=== PATIENT | male | born 1935 | race Caucasian/White ===

== ENCOUNTER 2018-12-14 12:06 | Inpatient (IN) | payer MEDICARE ==
[~2018-12-14] VITALS: Ht 157.5 cm; Wt 53.7 kg
[~2018-12-14 12:06] MED LIST: ALBU90OI INH; AMLO5 PO; ASPI81CH PO; ATOR10 PO; Accuneb1.25 MG/3 INH; Albuterol2.5 MG/0.5 INH; BENZ100A PO; CARV6.25 PO; CILO100 PO; CYCL10 PO; EUTHYROX88 MCG PO; FERSU220EL PO; FISH OIL 1,0001 EAC1 PO; FURO20 PO; Hydrocodone-Ap1 EA23 PO; LOSA50 PO; PANT40 PO; POTCIT10 PO; STRIVERDI RESPIM4 GM IH; TAMS.4ER PO; THERA-D2000 UNIT PO; TRAM50 PO
[2018-12-14 12:28] LABS: PCO2 Arterial 46.1 mmHg (35-45); PO2 Arterial 115 mmHg (80-100); pH Blood Arterial 7.37 (7.35-7.45)
[2018-12-14 12:38] LABS: BASOPHILS ABSOLUTE AUTO 0.03 K/mm3 (0.00-0.23); BASOPHILS PERCENT AUTO 0 % (0-2); EOSINOPHILS ABSOLUTE AUTO 0.01 K/mm3 (0.00-0.68); EOSINOPHILS PERCENT AUTO 0 % (0-6); Hematocrit 31.4 % (37.0-53.0); Hemoglobin 10.4 g/dL (13.5-17.5); IMMATURE GRAN ABSOLUTE AUTO 0.54 K/mm3 (0.00-0.10); IMMATURE GRAN PERCENT AUTO 3 % (0-1); LYMPHOCYTES ABSOLUTE AUTO 0.36 K/mm3 (0.84-5.20); LYMPHOCYTES PERCENT AUTO 2 % (21-46); MONOCYTES ABSOLUTE AUTO 1.26 K/mm3 (0.16-1.47); MONOCYTES PERCENT AUTO 6 % (4-13); Mean Corpuscular HGB 30.1 pg (26.0-34.0); Mean Corpuscular HGB Conc 33.1 g/dL (31.5-36.5); Mean Corpuscular Volume 91 fL (80-100); Mean Platelet Volume 11.2 fL (9.1-12.4); NEUTROPHILS ABSOLUTE AUTO 18.75 K/mm3 (1.96-9.15); NEUTROPHILS PERCENT AUTO 90 % (41-73); Platelet Count 222 K/mm3 (150-400); RDW Coefficient Variation 14.6 % (11.7-14.2); RDW Standard Deviation 48.1 fL (35.1-46.3); Red Blood Cell Count 3.45 M/mm3 (4.30-5.90); White Blood Cell Count 20.95 K/mm3 (4.00-11.30)
[2018-12-14 12:57] LABS: Alanine Aminotransfer (ALT/SGP 53 U/L (12-78); Albumin, Blood 3.5 g/dL (3.4-5.0); Albumin/Globulin Ratio 0.9 (0.8-1.8); Alk Phos 49 U/L (50-136); Anion Gap 6 mmol/L (6-16); Aspartate Aminotrans (AST/SGOT 25 U/L (12-37); Bilirubin, Total 1.2 mg/dL (0.1-1.0); Blood Urea Nitrogen 18 mg/dL (8-24); Bun/Creatinine Ratio 23.6 (12.0-20.0); CO2, Blood 28 mmol/L (21-32); Calcium, Blood 8.6 mg/dL (8.5-10.1); Chloride, Blood 90 mmol/L (98-108); Creatinine, Blood 0.76 mg/dL (0.60-1.20); Globulin, Blood 3.7 g/dL (2.2-4.0); Glomerular Filtration Rate >60 (60-); Glucose, Blood 95 mg/dL (70-99); Potassium, Blood 4.7 mmol/L (3.5-5.5); Sodium, Blood 124 mmol/L (136-145); Total Protein, Blood 7.2 g/dL (6.4-8.2); Troponin I 0.052 ng/mL (0.000-0.040)
[2018-12-14] MEDS ORDERED: ACET325 PO (13:22)
[2018-12-14] MEDS ORDERED: Aspirin EC81 MG PO (13:25)
[2018-12-14] MEDS ORDERED: AMLO5 PO (13:25)
[2018-12-14] MEDS ORDERED: Bisoprolol Fuma10 MG PO (13:26)
[2018-12-14] MEDS ORDERED: CODE30 PO (13:28)
[2018-12-14] MEDS ORDERED: FERSU300 PO (13:31)
[2018-12-14] MEDS ORDERED: Chest Congesti400 MG PO (13:33)
[2018-12-14] MEDS ORDERED: STIOLTO RESPIMAT4 GM INH (13:35)
[2018-12-14] MEDS ORDERED: GAVILAX17 GM PO (13:36)
[2018-12-14] MEDS ORDERED: PANT40 PO (13:36)
[2018-12-14] MEDS ORDERED: (None)20 M1 PO (13:39)
[2018-12-14] MEDS ORDERED: Zantac150 MG PO (13:44)
[2018-12-14] MEDS ORDERED: Senna8.6 MG PO (13:44)
--- NOTE | 2018-12-14 15:57 | NUR ---
Echocardiogram completed. Ankita Jj RDCS
--- NOTE | 2018-12-14 16:28 | NUR ---
Initial Visit: ED Palliative Care Consult for AD/POLST. Received call from mayra Bone reporting Pt and family expresses interest in completing POLST. Pt is A&Ox4 and denies pain at this time. Currently on BIPAP. Family present during visit. Engaged in therapeutic conversation regarding POLST/AD. Family reports Pt discussed with Dr Sethi regarding code status that Pt wants to be DNR. Pt is hard of hearing and education was being provided regarding POLST family felt Pt was experiencing some agitation. Offered to visit when Pt is admitted to the floor and when was not in distress. Family is agreeable. Gave family POLST and Advanced Directive to review and left contact information for palliative care. Plan: Palliative Care will F/U after Pt is admitted to the floor.
--- NOTE | 2018-12-14 18:00 | NUR ---
PT ARRIVED TO PCU 16 VIA GURNEY FROM ED. FAMILY IN ATTENDENCE, HE WAS PULLED TO BED, IS ON BIPAP AT THIS TIME, HE IS A/OX3, PLEASANT AND COOPERATIVE WITH CARE, FOLLOWS COMMANDS WELL, DENIES PAIN, JUST SOB, LUNGS ARE VERY DIM WITH EXP WHEEZING T/O, RESP EVEN WITH MILD LABORING, DAUGHTER REPORTS A HARSH PRODUCTIVE COUGH OF YELLOW SPUTUM, HE WAS RECENTLY HOSPITALIZED AT [facility], AND HAS BEEN HAVING SOB SINCE THEN, HRIRR, HAS A LOUD MURMUR, IS AFIB PER MONINTOR, SEE STRIP, +2 PITTING EDEMA NOTED TO B/L LE, CAP REFILL <4SEC, VS STABLE, LOW GRADE TEMP, IV TO RIGHT AND LEFT WRISTS, S.L, SITES ARE CLEAR AND PATENT, BTX4 ABD ROUND SEMI FIRM, VOIDS VIA URINAL LEYDA URINE, SKIN C/W/D, EXCEPT A VERY LARGE DEEP PURPLE BRUISE ACROSS ABD HE STATES FROM BLOOD THINNING INJECTIONS, MAEW, IS ABLE TO STAND AND TRANSFER WITH ONE PERSON ASSIST, BUT HAS ACTIVITY INTOLERANCE DUE TO RESP STATUS, MARIE. ORIENTED TO ROOM LAYOUT CALL LIGHT IN REACH.
[2018-12-15 03:44] LABS: BASOPHILS PERCENT AUTO 0 % (0-2); EOSINOPHILS PERCENT AUTO 0 % (0-6); Hematocrit 26.8 % (37.0-53.0); Hemoglobin 8.8 g/dL (13.5-17.5); IMMATURE GRAN ABSOLUTE AUTO 0.16 K/mm3 (0.00-0.10); IMMATURE GRAN PERCENT AUTO 2 % (0-1); LYMPHOCYTES ABSOLUTE AUTO 0.34 K/mm3 (0.84-5.20); LYMPHOCYTES PERCENT AUTO 5 % (21-46); MONOCYTES ABSOLUTE AUTO 0.54 K/mm3 (0.16-1.47); MONOCYTES PERCENT AUTO 7 % (4-13); Mean Corpuscular HGB 29.4 pg (26.0-34.0); Mean Corpuscular HGB Conc 32.8 g/dL (31.5-36.5); Mean Corpuscular Volume 90 fL (80-100); Mean Platelet Volume 11.4 fL (9.1-12.4); NEUTROPHILS ABSOLUTE AUTO 6.55 K/mm3 (1.96-9.15); NEUTROPHILS PERCENT AUTO 86 % (41-73); Platelet Count 165 K/mm3 (150-400); RDW Coefficient Variation 14.7 % (11.7-14.2); Red Blood Cell Count 2.99 M/mm3 (4.30-5.90); White Blood Cell Count 7.59 K/mm3 (4.00-11.30)
[2018-12-15 04:05] LABS: Anion Gap 6 mmol/L (6-16); Blood Urea Nitrogen 23 mg/dL (8-24); Bun/Creatinine Ratio 22.8 (12.0-20.0); CO2, Blood 29 mmol/L (21-32); Calcium, Blood 8.3 mg/dL (8.5-10.1); Chloride, Blood 91 mmol/L (98-108); Creatinine, Blood 1.01 mg/dL (0.60-1.20); Glomerular Filtration Rate >60 (60-); Glucose, Blood 152 mg/dL (70-99); Potassium, Blood 4.6 mmol/L (3.5-5.5); Sodium, Blood 126 mmol/L (136-145)
--- NOTE | 2018-12-15 05:58 | NUR ---
SHIFT SUMMARY PT SLEEPING IN ROOM COMFORTABLY AT THIS TIME. NO ACUTE CHANGES IN STATUS T/O NIGHT. PT WORE BIPAP AT START OF SHIFT FOR SEVERAL HOUR AND REQUESTED BREAK. PT TOLERATED NC AT 3L WELL, AND WAS ABLE TO SLEEP COMFORTABLY W/ O2 SATS >95% T/O NIGHT ON 3L O2. PT STOOD TO USE URINAL MULTIPLE TIMES T/O NIGHT AND NO SIGNIFICANT DESATURATIONS WERE NOTED, PT REMAINED ABOVE 90%. DENIES PAIN. REPORT MINOR DYSPNEA W/ EXERTION. DENIES OTHER NEEDS. PT VERY [place]. CALL LIGHT IN REACH. FAMILY AT BEDSIDE.
--- NOTE | 2018-12-15 09:51 | NUR ---
Pt visit this AM. Pt sitting in chair upon arrival and appears comfortable. Pt reports feeling better today. Currently off BIPAP and receiving O2 via NC. Pt's family present during visit. Family reports plan to complete AD today and will request a notary once complete. Pt and family report no concerns at this time. Spoke with bedside nurse Traci and discussed case. Palliative Care will remain available.
--- NOTE | 2018-12-15 16:38 | NUR ---
SHIFT SUMMARY PT A&Ox4. CALM AND COOPERATIVE WITH CARE CARE. 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 PT REPORTS LOWER BACK AND BLE PAIN THIS AM, MEDICATED x1 WITH TYLENOL WITH POSITIVE RESULTS. PT SOB WITH EXERTION, >92% ON 3L O2 VIA NC, PT HAS NOT NEEDED RESCUE BIPAP DURING SHIFT. LS DIM/COARSE T/O. BREATHING EVEN, LABORED AT TIMES. PT DENIES NAUSEA/VOMITING DURING SHIFT. PT ON FLUID RESTRICTIONS 1500, REQUESTING WATER AND COFFEE T/O SHIFT, EDUCATED ON RESTRICTION AND PURPOSE. PT RECEIVING IV ANTIBIOTICS AND LASIX. PT UP WITH SBA TO BATHROOM WITH SOB NOTED, NO SIGNIFICANT DESATURATIONS NOTED. TELE AFIB. VSS. NO OTHER ACUTE CHAGNES NOTED DURING SHIFT. WILL CONTINUE TO MONITOR UNTIL REPORT GIVEN TO ONCOMING RN.
--- NOTE | 2018-12-16 06:11 | NUR ---
SHIFT SUMMARY: PATIENT ALERT AND ORIENTED, NEEDING VERY LITTLE ASSISTANCE TO THE RESTROOM, SOB IS IMPROVING AND PATIENT IS DOWN TO 1L02 VIA NC/MAINTAINING A SATURATION OF 95%. VSS, CALL LIGHT WITHIN REACH, BED LOW AND LOCKED AND FAMILY AT BEDSIDE.
[2018-12-16 10:36] LABS: Anion Gap 3 mmol/L (6-16); Blood Urea Nitrogen 27 mg/dL (8-24); Bun/Creatinine Ratio 24.8 (12.0-20.0); CO2, Blood 32 mmol/L (21-32); Calcium, Blood 8.8 mg/dL (8.5-10.1); Chloride, Blood 92 mmol/L (98-108); Creatinine, Blood 1.09 mg/dL (0.60-1.20); Glomerular Filtration Rate >60 (60-); Glucose, Blood 84 mg/dL (70-99); Potassium, Blood 3.9 mmol/L (3.5-5.5); Sodium, Blood 127 mmol/L (136-145)
--- NOTE | 2018-12-16 17:01 | NUR ---
SHIFT SUMMARY PT A&Ox4. CALM AND COOPERATIVE WITH CARE. [place] WITH BILATERAL HEARING AIDS. PT SBA WITH WALKER. UP IN CHAIR FOR MEALS. PT STARTED ON 1L O2 VIA NC, TITRATED TO RA SPO2 >92%, BREATHING EVEN AND UNLABORED. PT REPROTS SOB WITH EXERTION. REFUSING TO USE BIPAP. PT REPORTS BACK AND BLE PAIN, MEDICATED X1 WITH TYLENOL. PT COMPLIANT WITH FLUID RESTRICTION. PT RECEIVING IV LASIX AND ANTIBIOTICS. VSS. NO OTHER ACUTE CHAGNES NOTED DURING SHIFT. WILL CONTINUE TO MONITOR UNTIL REPORT GIVEN TO ONCOMING RN.
[2018-12-17 03:42] LABS: Bun/Creatinine Ratio 25.8 (12.0-20.0); Calcium, Blood 8.4 mg/dL (8.5-10.1); Creatinine, Blood 1.28 mg/dL (0.60-1.20); Potassium, Blood 4.4 mmol/L (3.5-5.5)
--- NOTE | 2018-12-17 05:37 | NUR ---
SHIFT SUMMARY: PATIENT SLEPT WELL THIS SHIFT, ON RA ALL NIGHT, UP TO BATHROOM WITH MINIMAL ASSIST AND MINIMAL SOB. VSS, CALL LIGHT WITHIN REACH, BED LOW AND LOCKED AND PATIENT COMPLAINT WITH CARE.
--- NOTE | 2018-12-17 07:43 | NUR ---
ASSUMED CARE REPORT FROM CHEL SHAHID. PATIENT A&O, VERY [place]. SITTING IN CHAIR WITH FAMILY MEMBER SLEEPING IN ROOM. HAS JACKET ON. HEAT IN ROOM TURNED UP, DECLINED WARM BLANKET
--- NOTE | 2018-12-17 10:02 | NUR ---
HR AND BP WNL. TOPROL XL HELD UNTIL CONFIRMED WITH
--- NOTE | 2018-12-17 11:31 | NUR ---
MD VISIT DR. VICK IN. PLAN FOR DISCHARGE. DISCUSSING LASIX DOSES
[2018-12-17] MEDS ORDERED: AZIT500 PO (12:52)
[2018-12-17] MEDS ORDERED: FURO40 PO (12:53)
[2018-12-17] MEDS ORDERED: POTA10T PO (12:54)
--- NOTE | 2018-12-17 13:36 | NUR ---
DISCHARGE INSTRUCTIONS GIVEN AND ACKNOWLEDGED. PIV DC'D WNL OUT THE DOOR IN WC WITH LORENZA
== END 2018-12-17 13:37 | disposition home or self-care (01) | DRG 291 ==
LOC: ER 12:06 → PCU 14:16
PROVIDERS: Emergency Medicine; ADMIT Hospitalist
PROC: 5A09357 Assistance with Respiratory Ventilation, Less than 24 Consecutive Hours, Continuous Positive Airway Pressure (ICD-10-PCS; principal; 2018-12-14)
DX: I11.0 Hypertensive heart disease with heart failure (principal); J96.01 Acute respiratory failure with hypoxia; E87.1 Hypo-osmolality and hyponatremia; I50.23 Acute on chronic systolic (congestive) heart failure; J44.9 Chronic obstructive pulmonary disease, unspecified; N40.0 Benign prostatic hyperplasia without lower urinary tract symptoms; I73.9 Peripheral vascular disease, unspecified; E78.5 Hyperlipidemia, unspecified; K21.9 Gastro-esophageal reflux disease without esophagitis; Z79.52 Long term (current) use of systemic steroids; Z79.899 Other long term (current) drug therapy; Z87.891 Personal history of nicotine dependence
CPT/HCPCS: 36415; 36600; 71045; 80048; 80053; 82803; 83605; 83880; 84484; 85025; 87040; 93005; 93010; 93306; 94640; 94660; 94760; 94762; 96365; 96367; 96375; 99285-25; A9270; J0456; J0696; J1650; J1940; J2930; J7030; J7050; J7512

== ENCOUNTER 2019-01-21 20:45 | Inpatient (IN) | payer MEDICARE ==
[~2019-01-21] VITALS: Ht 157.5 cm; Wt 52.5 kg
[~2019-01-21 20:45] MED LIST changes: +(None)20 M1 PO; +ACET325 PO; +AZIT500 PO; +Aspirin EC81 MG PO; +Bisoprolol Fuma10 MG PO; +CODE30 PO; +Chest Congesti400 MG PO; +FERSU300 PO; +FURO40 PO; +GAVILAX17 GM PO; +POTA10T PO; +STIOLTO RESPIMAT4 GM INH; +Senna8.6 MG PO; +Zantac150 MG PO
[2019-01-21 21:28] LABS: BASOPHILS ABSOLUTE AUTO 0.07 K/mm3 (0.00-0.23); BASOPHILS PERCENT AUTO 1 % (0-2); EOSINOPHILS ABSOLUTE AUTO 0.15 K/mm3 (0.00-0.68); EOSINOPHILS PERCENT AUTO 1 % (0-6); Hematocrit 34.1 % (37.0-53.0); Hemoglobin 11.5 g/dL (13.5-17.5); IMMATURE GRAN ABSOLUTE AUTO 0.15 K/mm3 (0.00-0.10); IMMATURE GRAN PERCENT AUTO 1 % (0-1); LYMPHOCYTES ABSOLUTE AUTO 0.68 K/mm3 (0.84-5.20); LYMPHOCYTES PERCENT AUTO 6 % (21-46); MONOCYTES ABSOLUTE AUTO 0.89 K/mm3 (0.16-1.47); MONOCYTES PERCENT AUTO 8 % (4-13); Mean Corpuscular HGB 30.5 pg (26.0-34.0); Mean Corpuscular HGB Conc 33.7 g/dL (31.5-36.5); Mean Corpuscular Volume 91 fL (80-100); Mean Platelet Volume 11.2 fL (9.1-12.4); NEUTROPHILS ABSOLUTE AUTO 8.66 K/mm3 (1.96-9.15); NEUTROPHILS PERCENT AUTO 82 % (41-73); Platelet Count 145 K/mm3 (150-400); RDW Coefficient Variation 14.5 % (11.7-14.2); RDW Standard Deviation 48.7 fL (35.1-46.3); Red Blood Cell Count 3.77 M/mm3 (4.30-5.90)
[2019-01-21 21:34] LABS: PCO2 Venous 46.7 mmHg (38-42); pH Blood Venous 7.36 (7.34-7.37)
[2019-01-21 21:35] LABS: Bicarbonate Venous 24.4 mmol/L (24.0-30.0); PO2 Venous 40.9 mmHg (38-42)
[2019-01-21 21:36] LABS: Base Excess Venous 1 mmol/L
[2019-01-21 22:06] LABS: Troponin I <0.015 ng/mL (0.000-0.040)
[2019-01-21] MEDS ORDERED: Prednisone10 MG PO (22:06)
[2019-01-21 22:07] LABS: Alanine Aminotransfer (ALT/SGP 21 U/L (12-78); Albumin, Blood 3.8 g/dL (3.4-5.0); Alk Phos 54 U/L (50-136); Anion Gap 9 mmol/L (6-16); Aspartate Aminotrans (AST/SGOT 39 U/L (12-37); Bilirubin, Total 1.1 mg/dL (0.1-1.0); Blood Urea Nitrogen 15 mg/dL (8-24); Bun/Creatinine Ratio 19.6 (12.0-20.0); CO2, Blood 24 mmol/L (21-32); Calcium, Blood 8.8 mg/dL (8.5-10.1); Chloride, Blood 91 mmol/L (98-108); Creatinine, Blood 0.77 mg/dL (0.60-1.20); Globulin, Blood 3.8 g/dL (2.2-4.0); Glomerular Filtration Rate >60 (60-); Glucose, Blood 102 mg/dL (70-99); Potassium, Blood 5.5 mmol/L (3.5-5.5); Sodium, Blood 124 mmol/L (136-145); Total Protein, Blood 7.6 g/dL (6.4-8.2)
[2019-01-21] MEDS ORDERED: Synthroid88 MCG PO (22:28)
[2019-01-21] MEDS ORDERED: GUAI200 PO (22:29)
[2019-01-21] MEDS ORDERED: TAMS.4ER PO (22:29)
[2019-01-22] MEDS ORDERED: MIRALAX17 GM PO (00:39)
--- NOTE | 2019-01-22 06:13 | NUR ---
PT NEW ADMIT THIS SHIFT FOR CHF EXACERBATION. ARRIVES ON BIPAP 10/5 WITH FIO2 30%, BUR 12, AND SATS 97%, PT IS NOTED SPEAKING IN SEVERAL WORD SENTANCES, VOICE QUALITY IS STRONG. HAS TOLERATED BREAKS FROM BIPAP WITH OXYGEN AT 2 L/MIN VIA NC WHICH IS HIS HOME FLOW RATE. INITIAL REPORTS OF PAIN 8/ TO LOW BACK AND HIPS WHICH IS CHRONIC IN NATURE HAS BEEN CONTROLLED WITH PO TYLENOL ADMINISTERED X 1 THIS SHIFT. PT HAD RESERVATIONS REGARDING ORDERED LOVENOX SECONDARY TO LARGE AMOUNT OF ABD BRUISING FOLLOWING LOVENOX INJECTIONS IN A HOSPITAL IN [place]. DISCUSSED PURPOSE OF LOVENOX WITH PT AND DAUGHTER AND PT AGREEABLE TO ADMINISTRATION. LASIX 40 MG IV WAS ORDERED AND ADMINISTERED, LUNG SOUNDS REMAIN COARSE THROUGHOUT HOWEVER PT HAS IMPROVED AIR MOVEMENT TO AUSCULTATION. DAUGHTER PLANS TO RETURN THIS AM NEAR 0700.
[2019-01-22 07:45] LABS: Hematocrit 32.4 % (37.0-53.0); Mean Corpuscular HGB 30.3 pg (26.0-34.0); Mean Corpuscular Volume 89 fL (80-100); RDW Coefficient Variation 14.4 % (11.7-14.2); RDW Standard Deviation 47.2 fL (35.1-46.3); Red Blood Cell Count 3.63 M/mm3 (4.30-5.90); White Blood Cell Count 4.59 K/mm3 (4.00-11.30)
[2019-01-22 07:47] LABS: Mean Platelet Volume 10.9 fL (9.1-12.4); Platelet Count 135 K/mm3 (150-400)
[2019-01-22 08:00] LABS: Alanine Aminotransfer (ALT/SGP 20 U/L (12-78); Albumin, Blood 3.5 g/dL (3.4-5.0); Alk Phos 51 U/L (50-136); Anion Gap 10 mmol/L (6-16); Aspartate Aminotrans (AST/SGOT 16 U/L (12-37); Bilirubin, Total 1.1 mg/dL (0.1-1.0); Blood Urea Nitrogen 15 mg/dL (8-24); Bun/Creatinine Ratio 20.3 (12.0-20.0); CO2, Blood 25 mmol/L (21-32); CPK Creatine Kinase 82 U/L (39-308); Calcium, Blood 8.5 mg/dL (8.5-10.1); Chloride, Blood 93 mmol/L (98-108); Creatinine, Blood 0.74 mg/dL (0.60-1.20); Globulin, Blood 3.4 g/dL (2.2-4.0); Glomerular Filtration Rate >60 (60-); Glucose, Blood 138 mg/dL (70-99); Potassium, Blood 3.9 mmol/L (3.5-5.5); Sodium, Blood 128 mmol/L (136-145); Total Protein, Blood 6.9 g/dL (6.4-8.2); Troponin I <0.015 ng/mL (0.000-0.040)
--- NOTE | 2019-01-22 11:04 | NUR ---
am note Pt resting quietly. sr. vss. He has not needed the bipap for rescue. PT family at bedside. Not voiding a lot. Using urinal. Poor appetite. Pt is very nervious about his family moving to [place]. Continue pot.
[2019-01-22 12:15] LABS: Adenovirus Not Detected (NOT DETECT); Bordetella pertussis Not Detected (NOT DETECT); Chlamydophila pneumoniae Not Detected (NOT DETECT); Coronavirus 229E Not Detected (NOT DETECT); Coronavirus HKU1 Not Detected (NOT DETECT); Coronavirus NL63 Not Detected (NOT DETECT); Coronavirus OC43 Not Detected (NOT DETECT); Human Metapneumovirus Not Detected (NOT DETECT); Human Rhinovirus/Enterovirus Not Detected (NOT DETECT); Influenza A Not Detected (NOT DETECT); Influenza A/2009-H1 Not Detected (NOT DETECT); Influenza A/H1 Not Detected (NOT DETECT); Influenza A/H3 Not Detected (NOT DETECT); Influenza B Not Detected (NOT DETECT); Mycoplasma pneumoniae Not Detected (NOT DETECT); Parainfluenza Virus 1 Not Detected (NOT DETECT); Parainfluenza Virus 2 Not Detected (NOT DETECT); Parainfluenza Virus 3 Not Detected (NOT DETECT); Parainfluenza Virus 4 Not Detected (NOT DETECT); Respiratory Syncytial Virus Not Detected (NOT DETECT)
--- NOTE | 2019-01-22 14:21 | NUR ---
TRANSFER TO 346 REPORT CALLED THE DAVID RN. PT AND FAMILY AWARE OF TRANSFER. CONTINUE POT.
--- NOTE | 2019-01-22 14:25 | NUR ---
PT ARRIVED TO THE MEDICAL FLOOR FROM THE PCU, A/OX3, PLEASANT AND COOPERATIVE, PT AND FAMILY ORIENTED TO THE ROOM LAYOUT AND CALL SYSTEM, PT UP IN THE CHAIR AT THE BEDSIDE APPEARS TO BE BREATHING EASILY ON RA AT THIS TIME
[2019-01-22 15:24] LABS: CPK Creatine Kinase 82 U/L (39-308); Troponin I <0.015 ng/mL (0.000-0.040)
--- NOTE | 2019-01-22 16:18 | NUR ---
PT IS A/OX3, PLEASANT AND COOPERATIVE, THE PT IS UP IN THE CHAIR AT THE BEDSIDE AT THIS TIME, THE PT WAS A TRANSFER FROM PCU TODAY, THE PT WAS MEDICATED FOR PAIN IN THE PCU, AT THIS TIME THE PT REPORTS PAIN CONTROLED, THE PT APPEARS TO BE BREATHING EASILY ON RA, PTS FAMILY IS AT THE BEDSIDE, CALL LIGHT IN REACH, WILL CONTINUE TO MONITOR FOR CHANGES
--- NOTE | 2019-01-23 03:43 | NUR ---
SHIFT SUMMARY PT ADMITTED FOR ACUTE ON CHRONIC DIASTOLIC CHG. DNR. CARDIAC DIET. TELE-NSR WITH A FIRST DEGREE BLOCK AND A BUNDLE BRANCH BLOCK AT A RATE OF 61 PER CENTRAL OFFICE SUPERVISOR. LOVENOX FOR DVT PROPHYLAXIS. HYDRALAZINE PRN FOR SYSTOLIC BP GREATER THEN 160. 2L O2 VIA NC. 20G IV TO R FA. TAKES MEDICATIONS WHOLE WITH APPLESAUCE ONCE AT A TIME. 1500 ML FLUID RESTRICTION. 1 PERSON ASSIST TO BATHROOM. PT NOTED TO GET A BIT RESTLESS AND ANXIOUS FOLLOWING A NON-PRODUCTIVE COUGHING SPELL WHICH INCREASED PTS SOB. PT PRESENTED VERY FEARFUL. PROVIDED THERAPUTIC TOUCH AND GAVE PT HEARING AIDS TO ASSIST TO CALM PT WHO WAS THEN ABLE TO LAY BACK DOWN AND APPEARS TO BE RESTING COMFORTABLY. NO APPARENT SIGNS OF ACUTE DISTRESS. FREQUENT VISUAL CHECKS IT DOES NOT APPEAR THAT PT USES CALL LIGHT APPROPRIATELY. BED ALARM FOR SAFETY.
[2019-01-23 04:43] LABS: BASOPHILS ABSOLUTE AUTO 0.01 K/mm3 (0.00-0.23); BASOPHILS PERCENT AUTO 0 % (0-2); EOSINOPHILS ABSOLUTE AUTO 0.01 K/mm3 (0.00-0.68); EOSINOPHILS PERCENT AUTO 0 % (0-6); Hematocrit 27.6 % (37.0-53.0); Hemoglobin 9.3 g/dL (13.5-17.5); IMMATURE GRAN ABSOLUTE AUTO 0.08 K/mm3 (0.00-0.10); IMMATURE GRAN PERCENT AUTO 1 % (0-1); LYMPHOCYTES ABSOLUTE AUTO 0.66 K/mm3 (0.84-5.20); LYMPHOCYTES PERCENT AUTO 8 % (21-46); MONOCYTES ABSOLUTE AUTO 0.85 K/mm3 (0.16-1.47); MONOCYTES PERCENT AUTO 10 % (4-13); Mean Corpuscular HGB 29.8 pg (26.0-34.0); Mean Corpuscular HGB Conc 33.7 g/dL (31.5-36.5); Mean Corpuscular Volume 89 fL (80-100); Mean Platelet Volume 11.7 fL (9.1-12.4); NEUTROPHILS ABSOLUTE AUTO 6.71 K/mm3 (1.96-9.15); NEUTROPHILS PERCENT AUTO 81 % (41-73); Platelet Count 127 K/mm3 (150-400); RDW Coefficient Variation 14.6 % (11.7-14.2); RDW Standard Deviation 46.8 fL (35.1-46.3); Red Blood Cell Count 3.12 M/mm3 (4.30-5.90); White Blood Cell Count 8.32 K/mm3 (4.00-11.30)
[2019-01-23 05:04] LABS: Anion Gap 9 mmol/L (6-16); Blood Urea Nitrogen 19 mg/dL (8-24); Bun/Creatinine Ratio 20.1 (12.0-20.0); CO2, Blood 27 mmol/L (21-32); Calcium, Blood 8.6 mg/dL (8.5-10.1); Chloride, Blood 93 mmol/L (98-108); Creatinine, Blood 0.95 mg/dL (0.60-1.20); Glomerular Filtration Rate >60 (60-); Glucose, Blood 107 mg/dL (70-99); Potassium, Blood 4.3 mmol/L (3.5-5.5); Sodium, Blood 129 mmol/L (136-145)
[2019-01-23] MEDS ORDERED: Brovana15 MCG/2 M (12:59)
[2019-01-23] MEDS ORDERED: ROBITUSSIN COU237 ML PO (13:02)
[2019-01-23] MEDS ORDERED: LEVFLO500 PO (13:03)
[2019-01-23] MEDS ORDERED: ONDA4ODT MM (13:04)
[2019-01-23] MEDS ORDERED: Prednisone10 MG PO (13:05)
[2019-01-23] MEDS ORDERED: Florastor250 MG PO (13:05)
--- NOTE | 2019-01-23 14:38 | NUR ---
1421 PT DISCHARGED HOME VIA PERSONAL VEHICLE ACCOMPANIED AND DRIVEN BY DAUGHTER. [employer] ESCORTED PT TO FACILITY ENTRANCE VIA W/C. D/C PAPERWORK REVIEWED WITH PT AND DAUGHTER AND COPY PROVIDED. NEW RX FAXED TO [facility] PER PT AND CURT REQUEST, FAX CONFIRMATIONS RECIEVED. EDUCATION PROVIDED ON IMPROTANCE ON MEDICATION COMPLIANCE. IV REMOVED. NO NEW CHANGES OR CONCERNS.
== END 2019-01-23 14:22 | disposition home or self-care (01) | DRG 291 ==
LOC: ER 20:45 → PCU 22:52 → MEDS 01-22 14:32 → ENPENDDIS 01-23 11:15 → MEDS 01-23 14:22
PROVIDERS: Emergency Medicine; Family Medicine; ADMIT Internal Medicine
DX: I11.0 Hypertensive heart disease with heart failure (principal); J96.21 Acute and chronic respiratory failure with hypoxia; J44.1 Chronic obstructive pulmonary disease with (acute) exacerbation; E87.1 Hypo-osmolality and hyponatremia; I50.33 Acute on chronic diastolic (congestive) heart failure; E78.5 Hyperlipidemia, unspecified; E03.9 Hypothyroidism, unspecified; I73.9 Peripheral vascular disease, unspecified; Z66 Do not resuscitate; I34.0 Nonrheumatic mitral (valve) insufficiency; Z87.891 Personal history of nicotine dependence; Z88.0 Allergy status to penicillin; Z88.8 Allergy status to other drugs, medicaments and biological substances; Z79.82 Long term (current) use of aspirin; Z79.899 Other long term (current) drug therapy
CPT/HCPCS: 0099U; 36415; 71045; 80048; 80053; 82550; 82803; 83735; 83880; 84145; 84484; 85025; 85027; 93005; 93010; 93308; 93321; 94640; 94644; 94660; 94760; 94761; 94762; 96374; 99285-25; A9270; J1650; J1940; J1956; J2930; J7050; J7512; J7605